=== PATIENT | male | born 1955 | race Caucasian/White ===

== ENCOUNTER 2018-12-14 10:26 | Outpatient (CLI) | payer BC ==
[2015-12-04 09:51] VITALS: BP 142/81
[2018-12-14 10:55] LABS: BASOPHILS % 0.4 % (0.0-1.5)
[2018-12-14 10:56] LABS: NEUTROPHILS # 3.8 # k/uL (1.4-7.7)
[2018-12-14 11:42] LABS: HDL 27 mg/dL (>40); eGFR (Non-African) > 60
== END 2018-12-14 10:31 ==
LOC: LAB 10:26
PROVIDERS: ATTEND Nurse Practitioner Family
DX: Z00.01 Encounter for general adult medical examination with abnormal findings (principal); R53.83 Other fatigue; R53.1 Weakness
CPT/HCPCS: 36415; 80053; 80061; 84443; 85025